=== PATIENT | female | born 1995 | race Caucasian/White ===

== ENCOUNTER 2022-02-27 12:23 | Inpatient (IN) | payer MEDICAID ==
[~2022-02-27] VITALS: Ht 150 cm; Wt 72.6 kg
[2022-02-27] MEDS ORDERED: CEFAZOLIN 2 GM IVPB PREMIX 50 ML IV ONE (13:15)
[2022-02-27] MEDS ORDERED: LR 1,000 ML IV ONE (13:15)
[2022-02-27 13:32] LABS: BASOPHILS % (AUTO) 0.2 % (0.0-2.0); EOSINOPHILS # (AUTO) 0.1 K/uL (0.0-0.4); EOSINOPHILS % (AUTO) 0.7 % (0.0-4.0); HEMATOCRIT 35.5 % (36-48); HEMOGLOBIN 12.4 g/dL (12.0-16.0); LYMPHOCYTES # (AUTO) 1.5 K/uL (1.0-5.5); LYMPHOCYTES % (AUTO) 22.5 % (20.5-51.5); MEAN CORPUSCULAR HEMOGLOBIN 29 pg (27-31); MEAN CORPUSCULAR HGB CONC 35 % (32-36); MEAN CORPUSCULAR VOLUME 83 fL (79.0-98.0); MONOCYTES # (AUTO) 0.4 K/uL (0.0-1.0); NEUTROPHILS # (AUTO) 4.8 K/uL (1.8-7.7); NEUTROPHILS % (AUTO) 70.6 % (40.0-70.0); PLATELET COUNT (AUTO) 156 K/uL (130-430); RED BLOOD CELL COUNT(AUTO) 4.27 MIL/uL (4.2-6.2); RED CELL DISTRIBUTION WIDTH 14.3 % (9.0-15.0); WHITE BLOOD COUNT (AUTO) 6.8 K/uL (4.8-10.8)
[2022-02-27 13:58] LABS: BILIRUBIN,URINE NEGATIVE (NEGATIVE); BLOOD, URINE 2+ (NEGATIVE); CLARITY/URINE CLEAR (CLEAR); COLOR,URINE YELLOW (YELLOW); GLUCOSE,URINE NEGATIVE (NEGATIVE); KETONES,URINE 3+ (NEGATIVE); LEUKOCYTE ESTERASE ,URINE TRACE (NEGATIVE); NITRITE, URINE NEGATIVE (NEGATIVE); PROTEIN URINE NEGATIVE (NEGATIVE); UROBILINOGEN,URINE 0.2 (0.2-1.0)
[2022-02-27 14:10] LABS: RBC,URINE 0-3 /HPF (0-3)
[2022-02-27 14:11] LABS: BACTERIA,URINE None Seen /HPF (None Seen); MUCUS,URINE None Seen /LPF (None Seen); WBC,URINE 0-3 /HPF (0-3)
[2022-02-27 16:30] VITALS: BP_SYST 134
[2022-02-27] MEDS ORDERED: HYDROcodone/ACETAMIN 5-325 MG TAB (NORCO/ VICODIN) PO PRN (17:45)
[2022-02-27] MEDS ORDERED: OXYCODONE/ACETAMINOPHEN 5-325 TABLET PO PRN (17:45)
[2022-02-27] MEDS ORDERED: METHYLERGONOVINE MALEATE 0.2 MG/ML AMP ONE ×2 (18:38→19:12)
[2022-02-27] MEDS ORDERED: OXYTOCIN 10 UNIT/ML VIAL ONE ×2 (18:57→19:12)
[2022-02-27] MEDS ORDERED: KETOROLAC TROMETHAMINE 60 MG/2 ML VIAL IM PRN (19:00)
[2022-02-27] MEDS ORDERED: NALOXONE HCL 0.4 MG/ML AMP (NARCAN) IVP PRN (19:00)
[2022-02-27] MEDS ORDERED: DIPHENHYDRAMINE INJ 50 MG/ML VIAL IM PRN (19:00)
[2022-02-27] MEDS ORDERED: ONDANSETRON HCL 4 MG/2 ML VIAL IVP PRN (19:00)
[2022-02-27] MEDS ORDERED: MORPHINE SULFATE 10MG/10ML PF AMP SP ONE (19:00)
[2022-02-27] MEDS ORDERED: LR 1,000 ML IV.SOLN IV ONE (19:12)
[2022-02-27] MEDS ORDERED: OXYTOCIN/0.9 % SODIUM CHLORIDE 20 UNITS/1,000 ML BAG IV ONE (19:12)
[2022-02-27] MEDS ORDERED: ONDANSETRON HCL 4 MG/2 ML VIAL ONE (19:12)
[2022-02-27] MEDS ORDERED: METOCLOPRAMIDE HCL 10 MG/2 ML VIAL ONE (19:12)
[2022-02-27] MEDS ORDERED: BUPIVACAINE /DEX PF 0.75% SPINAL 2 ML AMP INJ ONE (19:12)
[2022-02-27] MEDS ORDERED: MORPHINE SULFATE 10MG/10ML PF AMP ONE (19:12)
[2022-02-27] MEDS ORDERED: NS IRRIG SOLN 1000 ML IR ONE (19:12)
[2022-02-27] MEDS ORDERED: MEPERIDINE HCL/PF 25 MG/ML DISP.SYRIN ONE (19:48)
[2022-02-27] MEDS ORDERED: MEPERIDINE HCL/PF 25 MG/ML DISP.SYRIN IVP ONE (20:00)
[2022-02-28 07:13] LABS: BASOPHILS % (AUTO) 0.4 % (0.0-2.0); EOSINOPHILS # (AUTO) 0.1 K/uL (0.0-0.4); HEMATOCRIT 32.7 % (36-48); HEMOGLOBIN 11.3 g/dL (12.0-16.0); LYMPHOCYTES # (AUTO) 1.4 K/uL (1.0-5.5); LYMPHOCYTES % (AUTO) 21.6 % (20.5-51.5); MEAN CORPUSCULAR HEMOGLOBIN 29 pg (27-31); MEAN CORPUSCULAR HGB CONC 35 % (32-36); MEAN CORPUSCULAR VOLUME 84 fL (79.0-98.0); MONOCYTES # (AUTO) 0.4 K/uL (0.0-1.0); MONOCYTES % (AUTO) 6.3 % (1.7-9.3); NEUTROPHILS # (AUTO) 4.5 K/uL (1.8-7.7); NEUTROPHILS % (AUTO) 70.7 % (40.0-70.0); PLATELET COUNT (AUTO) 148 K/uL (130-430); RED BLOOD CELL COUNT(AUTO) 3.92 MIL/uL (4.2-6.2); RED CELL DISTRIBUTION WIDTH 14.4 % (9.0-15.0); WHITE BLOOD COUNT (AUTO) 6.4 K/uL (4.8-10.8)
[2022-02-28] MEDS ORDERED: LR 1,000 ML IV ONE (08:30)
[2022-02-28] MEDS ORDERED: OXYC-128 PO (12:02)
[2022-02-28] MEDS ORDERED: IBUPROFEN 600 MG TABLET ONE (12:43)
[2022-02-28] MEDS: OXYCODONE/ACETAMINOPHEN 5-325 TABLET PO PRN ×2 (13:42→21:53)
[2022-02-28] MEDS: IBUPROFEN 600 MG TABLET PO SCH (18:01)
[2022-02-28 20:00] VITALS: BP_SYST 123
[2022-02-28] MEDS ORDERED: SIMETHICONE 80 MG TAB.CHEW PO PRN (21:45)
[2022-02-28] MEDS ORDERED: DOCUSATE SODIUM 100 MG CAPSULE PO SCH (21:45)
[2022-03-01] MEDS: IBUPROFEN 600 MG TABLET PO SCH ×2 (00:23→06:29)
[2022-03-02 20:06] LABS: FTA-Ab (T PALLIDUM) Non Reactive (Non Reactive)
== END 2022-03-01 13:30 | disposition home or self-care (01) | DRG 540 ==
LOC: SPU 12:23
PROVIDERS: ADMIT Obstetrics & Gynecology; ATTEND Obstetrics & Gynecology
PROC: 10D00Z1 Extraction of Products of Conception, Low, Open Approach (ICD-10-PCS; principal; 2022-02-27 17:30)
DX: O34.211 Maternal care for low transverse scar from previous cesarean delivery (principal); Z20.822 Contact with and (suspected) exposure to COVID-19; Z3A.39 39 weeks gestation of pregnancy; Z37.0 Single live birth
CPT/HCPCS: 36415; 81000; 85025; 86592; 86762; 86780; 86886; 86900; 86901; 87086; 87536; 94760; J0690; J1885; J2175; J2210; J2274; J2405; J2590; J2765; J3490; J7120